=== PATIENT | female | born 1965 | race Caucasian/White ===

== ENCOUNTER 2020-08-08 21:16 | Observation (INO) | payer OTHER ==
[2020-08-08] MEDS ORDERED: SODIUM CHLORIDE 0.9% 1,000 ML IV STA (21:49)
[2020-08-08 22:02] LABS: Basophils # (A) 0.1 k/uL (0-0.2); Basophils % (A) 1 %; Eosinophils # (A) 0.2 k/uL (0-0.7); Eosinophils % (A) 2 %; HCT 41.5 % (34.0-46.0); HGB 13.8 gm/dL (11.4-16.0); Lymphocytes # (A) 3.8 k/uL (1.0-4.8); Lymphocytes % (A) 39 %; MCH 31.5 pg (25.0-35.0); MCHC 33.3 g/dL (31.0-37.0); MCV 94.5 fL (80.0-100.0); Mean Platelet Volume 8.6; Monocytes # (A) 0.5 k/uL (0-1.0); Monocytes % (A) 5 %; Neutrophils # (A) 5.1 k/uL (1.3-7.7); Neutrophils % (A) 52 %; Platelet Count 316 k/uL (150-450); RBC 4.39 m/uL (3.80-5.40); RDW 14.9 % (11.5-15.5); WBC 9.8 k/uL (3.8-10.6)
[2020-08-08 22:04] LABS: Glucose,Whole Blood 83 mg/dL (75-99)
[2020-08-08 22:14] LABS: ALT 44 U/L (4-34); AST 52 U/L (14-36); African American GFR (CKD) 59 (>60 ml/min/1.73 sqM); Albumin 4.7 g/dL (3.5-5.0); Alcohol <10 mg/dL; Alkaline Phosphatase 92 U/L (38-126); Anion Gap 12 mmol/L; Blood Urea Nitrogen 13 mg/dL (7-17); Calcium 10.1 mg/dL (8.4-10.2); Carbon Dioxide 23 mmol/L (22-30); Chloride 106 mmol/L (98-107); Glucose 91 mg/dL (74-99); Magnesium 2.5 mg/dL (1.6-2.3); Non-African American GFR(CKD) 52 (>60 ml/min/1.73 sqM); Potassium 3.7 mmol/L (3.5-5.1); Sodium 141 mmol/L (137-145); Total Bilirubin 0.4 mg/dL (0.2-1.3); Total Protein 7.3 g/dL (6.3-8.2)
--- NOTE | 2020-08-08 22:14 | XR ---
EXAMINATION TYPE: XR chest 2V DATE OF EXAM: 08/08/2020 COMPARISON: NONE HISTORY: Syncope TECHNIQUE: 2 views FINDINGS: Heart and mediastinum are normal. Lungs are clear. Diaphragm is normal. Bony thorax is inta ct. IMPRESSION: Normal chest
--- NOTE | 2020-08-08 22:20 | ED ---
General Adult HPI - General Chief complaint: Syncope Stated complaint: Syncope Time Seen by Provider: 08/08/20 21:19 Source: patient, EMS Mode of arrival: EMS Limitations: no limitations - History of Present Illness Initial comments: 35-year-old female with a past medical history of thyroid disorder presents to the emergency room for a chief complaint of syncope. Patient reports that she was at the bar with her . She had sat for one beer. Patient states her vision started to turn black and she started to feel lightheaded and like she was going to pass out. According to patient's she did pass out and then vomited. She came back to and this happened one more time. They decided to come into the emergency room. Patient states she feels better at this time. Was initially diaphoretic but that has since resolved. She denies any chest pain or shortness of breath associated with this loss of consciousness. Patient has no other complaints at this time including shortness of breath, chest pain, abdominal pain, headache, or visual changes. - Related Data Allergies Allergy/AdvReac Type Severity Reaction Status Date / Time No Known Allergies Allergy Verified 08/08/20 21:51 Review of Systems ROS Statement: Those systems with pertinent positive or pertinent negative responses have been documented in the HPI. ROS Other: All systems not noted in ROS Statement are negative. Past Medical History Past Medical History: Cancer, Thyroid Disorder Additional Past Medical History / Comment(s): thyroid cancer History of Any Multi-Drug Resistant Organisms: None Reported Additional Past Surgical History / Comment(s): thyroidectomy Past Psychological History: No Psychological Hx Reported Smoking Status: Never smoker Past Alcohol Use History: Rare Past Drug Use History: None Reported General Exam Limitations: no limitations General appearance: alert, in no apparent distress Head exam: Present: atraumatic, normocephalic, normal inspection Eye exam: Present: normal appearance, PERRL, EOMI. Absent: scleral icterus, conjunctival injection, periorbital swelling ENT exam: Present: normal exam, mucous membranes moist Neck exam: Present: normal inspection, full ROM. Absent: tenderness, meningismus, lymphadenopathy Respiratory exam: Present: normal lung sounds bilaterally. Absent: respiratory distress, wheezes, rales, rhonchi, stridor Cardiovascular Exam: Present: regular rate, normal rhythm, normal heart sounds. Absent: systolic murmur, diastolic murmur, rubs, gallop, clicks GI/Abdominal exam: Present: soft, normal bowel sounds. Absent: distended, tenderness, guarding, rebound, rigid Neurological exam: Present: alert Course Vital Signs 08/08/20 08/08/20 08/08/20 21:30 22:00 22:48 Temperature 98.2 F Pulse Rate 80 88 73 Respiratory 20 20 18 Rate Blood Pressure 100/53 101/65 102/78 O2 Sat by Pulse 98 99 97 Oximetry EKG Findings - EKG Comments: EKG Findings:: Normal sinus rhythm, ventricular rate 78, AZ interval 208, QTc 458 Medical Decision Making - Medical Decision Making Vitals are stable. Patient initially presented sightly diaphoretic however this did improve her her stay. EKG did show T-wave inversions in the lateral leads however do not have a previous to compare this to. Patient was kept on cardiac monitoring for dysrhythmia. CBC CMP unremarkable. Magnesium 2.5. This x-ray shows a normal chest. Patient does not follow with a primary care doctor and has not had a cardiac workup. Given her age and that she had 2 unprovoked syncopal episodes he will admit her for cardiology consultation. case discussed with Dr Chacon who does accept admission. - Lab Data Result diagrams: 08/08/20 21:55 08/08/20 21:55 Lab Results 08/08/20 08/08/20 08/08/20 Range/Units 21:55 21:55 21:55 WBC 9.8 (3.8-10.6) k/uL RBC 4.39 (3.80-5.40) m/uL Hgb 13.8 (11.4-16.0) gm/dL Hct 41.5 (34.0-46.0) % MCV 94.5 (80.0-100.0) fL MCH 31.5 (25.0-35.0) pg MCHC 33.3 (31.0-37.0) g/dL RDW 14.9 (11.5-15.5) % Plt Count 316 (150-450) k/uL MPV 8.6 Neutrophils % 52 % Lymphocytes % 39 % Monocytes % 5 % Eosinophils % 2 % Basophils % 1 % Neutrophils # 5.1 (1.3-7.7) k/uL Lymphocytes # 3.8 (1.0-4.8) k/uL Monocytes # 0.5 (0-1.0) k/uL Eosinophils # 0.2 (0-0.7) k/uL Basophils # 0.1 (0-0.2) k/uL PT 10.1 (9.0-12.0) sec INR 0.9 (<1.2) APTT 19.5 L (22.0-30.0) sec Sodium 141 (137-145) mmol/L Potassium 3.7 (3.5-5.1) mmol/L Chloride 106 (98-107) mmol/L Carbon Dioxide 23 (22-30) mmol/L Anion Gap 12 mmol/L BUN 13 (7-17) mg/dL Creatinine 1.19 H (0.52-1.04) mg/dL Est GFR (CKD-EPI)AfAm 59 (>60 ml/min/1.73 sqM) Est GFR (CKD-EPI)NonAf 52 (>60 ml/min/1.73 sqM) Glucose 91 (74-99) mg/dL POC Glucose (mg/dL) (75-99) mg/dL POC Glu Promotion Officer ID Calcium 10.1 (8.4-10.2) mg/dL Magnesium 2.5 H (1.6-2.3) mg/dL Total Bilirubin 0.4 (0.2-1.3) mg/dL AST 52 H (14-36) U/L ALT 44 H (4-34) U/L Alkaline Phosphatase 92 (38-126) U/L Troponin I (0.000-0.034) ng/mL Total Protein 7.3 (6.3-8.2) g/dL Albumin 4.7 (3.5-5.0) g/dL Serum Alcohol <10 mg/dL 08/08/20 08/08/20 Range/Units 21:55 22:02 WBC (3.8-10.6) k/uL RBC (3.80-5.40) m/uL Hgb (11.4-16.0) gm/dL Hct (34.0-46.0) % MCV (80.0-100.0) fL MCH (25.0-35.0) pg MCHC (31.0-37.0) g/dL RDW (11.5-15.5) % Plt Count (150-450) k/uL MPV Neutrophils % % Lymphocytes % % Monocytes % % Eosinophils % % Basophils % % Neutrophils # (1.3-7.7) k/uL Lymphocytes # (1.0-4.8) k/uL Monocytes # (0-1.0) k/uL Eosinophils # (0-0.7) k/uL Basophils # (0-0.2) k/uL PT (9.0-12.0) sec INR (<1.2) APTT (22.0-30.0) sec Sodium (137-145) mmol/L Potassium (3.5-5.1) mmol/L Chloride (98-107) mmol/L Carbon Dioxide (22-30) mmol/L Anion Gap mmol/L BUN (7-17) mg/dL Creatinine (0.52-1.04) mg/dL Est GFR (CKD-EPI)AfAm (>60 ml/min/1.73 sqM) Est GFR (CKD-EPI)NonAf (>60 ml/min/1.73 sqM) Glucose (74-99) mg/dL POC Glucose (mg/dL) 83 (75-99) mg/dL POC Glu Promotion Officer ID Julian Hargrove Calcium (8.4-10.2) mg/dL Magnesium (1.6-2.3) mg/dL Total Bilirubin (0.2-1.3) mg/dL AST (14-36) U/L ALT (4-34) U/L Alkaline Phosphatase (38-126) U/L Troponin I <0.012 (0.000-0.034) ng/mL Total Protein (6.3-8.2) g/dL Albumin (3.5-5.0) g/dL Serum Alcohol mg/dL Disposition Clinical Impression: Syncope Disposition: ADMITTED IP TO THIS HOSP Is patient prescribed a controlled substance at d/c from ED?: No Referrals: None,Stated [Primary Care Provider] - 1-2 days Time of Disposition: 22:52
[2020-08-08 22:32] LABS: INR 0.9 (<1.2); Prothrombin Time 10.1 sec (9.0-12.0)
[2020-08-08 22:36] LABS: Partial Thromboplastin Time 19.5 sec (22.0-30.0)
[2020-08-08] MEDS ORDERED: NITROGLYCERIN SL TABS 0.4 MG TAB SUBLINGUAL PRN (22:48)
[2020-08-09] MEDS: SODIUM CHLORIDE 0.9% 1,000 ML IV SCH ×4 (00:52→23:44)
[2020-08-09] MEDS ORDERED: ONDANSETRON 4 MG/2 ML VIAL IVP PRN (02:26)
[2020-08-09] MEDS: ALPRAZolam 0.25 MG TAB PO PRN ×2 (02:38→17:39)
[2020-08-09] MEDS: PANTOPRAZOLE 40 MG TABLET PO SCH ×3 (02:40→17:43)
--- NOTE | 2020-08-09 03:50 | P.HPIM ---
History of Present Illness H&P Date: 08/08/20 Chief Complaint: Syncopal episodes 55-year-old female with no significant past medical history except for hypothyroidism Patient comes in due to experiencing 2 episodes [id number] of syncope. She was with her at a restaurant having 1 alcoholic beverage and dinner about an hour or so into the evening at the restaurants she suddenly started having difficulty with her vision as she was blacking out and then as she was describing that to her she passed out the episode was brief she regained consciousness and says started throwing up as the was trying to help her she denied any chest pain or trouble breathing she denied any palpitations but then she had another episode of passing out she became diaphoretic this episode was again short lived not associated with any violent jerky movement of her body she denies any loss of bladder or bowel control denies any tongue biting she denies any history of seizures or head injury. grew concerned and decided to call EMS to bring at the hospital for evaluation Patient asked that there is no history of premature CAD however her sister was found to have blockage in her LAD at the age of 52 just couple weeks ago. And was also found to have blood clots in her lungs she recalls that her mother has factor V [place]. Otherwise patient denies any drugs or heavy alcohol intake denies any smoking she denies any recent travel or hospitalization denies any history of cancer Patient also complains of acid reflux and history of GERD Patient doesn't have a PCP. In the ED initial workup showed slightly elevated creatinine, AST, and L2 chest x-ray no acute pathology alcohol level is less than 10 EKG showed T wave inversion in lateral leads Troponin was negative Review of Systems Pertinent positives as noted in HPI. All other systems were reviewed and are negative Past Medical History Past Medical History: Cancer, Thyroid Disorder Additional Past Medical History / Comment(s): thyroid cancer History of Any Multi-Drug Resistant Organisms: None Reported Additional Past Surgical History / Comment(s): thyroidectomy Past Psychological History: No Psychological Hx Reported Smoking Status: Never smoker Past Alcohol Use History: Rare Past Drug Use History: None Reported - Past Family History Family Family Medical History: No Reported History Medications and Allergies Allergies Allergy/AdvReac Type Severity Reaction Status Date / Time No Known Allergies Allergy Verified 08/08/20 21:51 Physical Exam Vitals: Vital Signs Temp Pulse Resp BP Pulse Ox 08/08/20 22:48 73 18 102/78 97 08/08/20 22:00 88 20 101/65 99 08/08/20 21:30 98.2 F 80 20 100/53 98 Intake and Output 08/08/20 08/08/20 08/08/20 06:59 14:59 22:59 Other: Weight 81.647 kg Constitutional: No acute distress, conversant, pleasant Eyes: Anicteric sclerae, moist conjunctiva, Pupils equal round reactive to light ENMT: NC/AT Oropharynx clear, no erythema, or exudates Neck: Supple, FROM, no masses, or JVD No carotid bruits No thyromegaly Lungs: Clear to auscultation Clear to percussion Normal respiratory effort, no accessory muscle use Cardiovascular: Heart regular in rate and rhythm, No murmurs, gallops, or rubs No peripheral edema Abdominal: Soft Nontender, no guarding, rebound or rigidity Abdomen moving with respiration Normoactive bowel sounds No hepatomegaly, No splenomegaly No palpable mass No abdominal wall hernia noted Skin: Normal temperature, tone, texture, turgor No induration No subcutaneous nodules No rash, lesions No ulcers Extremities: No digital cyanosis No clubbing Pedal pulses intact and symmetrical Radial pulses intact and symmetrical No calf tenderness Psychiatric: Alert and oriented to person, place and time Appropriate affect fair judgement Neuro Muscles Strength 5/5 in all 4 extremities Sensation to light touch grossly present throughout Cranial nerves II-XII grossly intact No focal sensory deficits Lymphatics: no palpable cervical or supraclavicular , or inguinal lymph nodes Results CBC & Chem 7: 08/08/20 21:55 08/08/20 21:55 Labs: Abnormal Lab Results - Last 24 Hours (Table) 08/08/20 08/08/20 Range/Units 21:55 21:55 APTT 19.5 L (22.0-30.0) sec Creatinine 1.19 H (0.52-1.04) mg/dL Magnesium 2.5 H (1.6-2.3) mg/dL AST 52 H (14-36) U/L ALT 44 H (4-34) U/L Assessment and Plan Assessment: 2 episodes of syncope 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 Fall precautions Orthostatic vital signs Trend troponins EKG showed T wave inversions in lateral leads Cardiology consult Check lipid profile History of thyroid cancer status post resection Check TSH History of GERD PPI Very slightly elevated liver enzymes continue to monitor CODE STATUS: Full code DVT prophylaxis: Heparin subcu 3 times a day Discussed with: Patient, ER, RN Anticipated length of stay less than [address]: Home A total of 75 minutes was spent on the care of this complex patient more than 50% of the time was spent in counseling and care coordination.
--- NOTE | 2020-08-09 08:51 | P.CRDCN ---
History of Present Illness Consult date: 08/09/20 Chief complaint: Syncope/chest pain History of present illness: This is a pleasant 55-year-old female patient with no significant past medical history who was admitted to hospital with syncope. The patient was in her usual state of health where she was with her has been sitting eating dinner and she took only one alcohol beverage with dinner. She was talking to her has been when she told him that I feel funny. She started experiencing mild chest discomfort and subsequently she developed warm feeling in her face and then she felt dizzy and lightheaded and subsequently she lost her consciousness. Also before the episode of loss of consciousness she did have some blurry vision. She regained her consciousness and subsequently she lost it again. Ambulance was called and the patient was brought to the emergency department. No prior history of syncope. No coronary artery disease or congestive heart failure or cardiac arrhythmia. The EKG showed sinus rhythm with T-wave inversion in the anterolateral leads seems to be quite concerning for severe underlying coronary artery disease. The troponin at 3 sets came in to be unremarkable. The chest x-ray did not show any acute abnormalities. The rest of her blood work came in to be unremarkable. She does have a very significant family history of CAD including a sister who just underwent stenting recently and also her mother who does have valvular heart disease and according to her coronary artery disease. Orthostatic blood pressure was checked and came in to be unremarkable Past Medical History Past Medical History: Cancer, Thyroid Disorder Additional Past Medical History / Comment(s): thyroid cancer History of Any Multi-Drug Resistant Organisms: None Reported Past Surgical History: Cholecystectomy Additional Past Surgical History / Comment(s): thyroidectomy Past Anesthesia/Blood Transfusion Reactions: Postoperative Nausea & Vomiting (PONV) Past Psychological History: No Psychological Hx Reported Smoking Status: Never smoker Past Alcohol Use History: Rare Past Drug Use History: None Reported - Past Family History Family Family Medical History: No Reported History Medications and Allergies Allergies Allergy/AdvReac Type Severity Reaction Status Date / Time No Known Allergies Allergy Verified 08/08/20 21:51 Physical Exam Vitals: Vital Signs Temp Pulse Pulse Pulse Pulse Pulse Resp 08/09/20 07:00 97.4 F L 68 70 66 16 08/09/20 02:00 16 08/09/20 00:10 98.0 F 71 16 08/08/20 23:04 68 20 08/08/20 22:48 73 18 08/08/20 22:00 88 20 08/08/20 21:30 98.2 F 80 20 BP BP BP BP BP Pulse Ox 08/09/20 07:00 120/82 131/91 120/82 95 08/09/20 02:00 08/09/20 00:10 138/89 98 08/08/20 23:04 103/58 99 08/08/20 22:48 102/78 97 08/08/20 22:00 101/65 99 08/08/20 21:30 100/53 98 Intake and Output 08/08/20 08/09/20 08/09/20 22:59 06:59 14:59 Other: Voiding Method Toilet # Voids 2 Weight 81.647 kg 81.647 kg - Constitutional General appearance: no acute distress - Respiratory Respiratory: bilateral: CTA - Cardiovascular Rhythm: regular Heart sounds: normal: S1, S2 Abnormal Heart Sounds: systolic murmur Results 08/08/20 21:55 08/08/20 21:55 Cardiac Enzymes 08/08/20 08/08/20 08/09/20 Range/Units 21:55 21:55 00:07 AST 52 H (14-36) U/L Troponin I <0.012 <0.012 (0.000-0.034) ng/mL 08/09/20 Range/Units 03:24 AST (14-36) U/L Troponin I <0.012 (0.000-0.034) ng/mL Coagulation 08/08/20 Range/Units 21:55 PT 10.1 (9.0-12.0) sec APTT 19.5 L (22.0-30.0) sec CBC 08/08/20 Range/Units 21:55 WBC 9.8 (3.8-10.6) k/uL RBC 4.39 (3.80-5.40) m/uL Hgb 13.8 (11.4-16.0) gm/dL Hct 41.5 (34.0-46.0) % Plt Count 316 (150-450) k/uL Comprehensive Metabolic Panel 08/08/20 Range/Units 21:55 Sodium 141 (137-145) mmol/L Potassium 3.7 (3.5-5.1) mmol/L Chloride 106 (98-107) mmol/L Carbon Dioxide 23 (22-30) mmol/L BUN 13 (7-17) mg/dL Creatinine 1.19 H (0.52-1.04) mg/dL Glucose 91 (74-99) mg/dL Calcium 10.1 (8.4-10.2) mg/dL AST 52 H (14-36) U/L ALT 44 H (4-34) U/L Alkaline Phosphatase 92 (38-126) U/L Total Protein 7.3 (6.3-8.2) g/dL Albumin 4.7 (3.5-5.0) g/dL Current Medications Generic Name Dose Route Start Last Admin Trade Name Freq PRN Reason Stop Dose Admin Alprazolam 0.25 mg 08/09/20 02:26 08/09/20 02:38 Alprazolam 0.25 Mg Tab PO 0.25 mg TID PRN Administration Anxiety Aspirin 325 mg 08/09/20 09:00 Aspirin 325 Mg Tab PO DAILY TEJINDER Sodium Chloride 1,000 mls @ 130 mls/hr 08/08/20 23:30 08/09/20 00:52 Saline 0.9% IV 130 mls/hr .[id number] TEJINDER Administration Nitroglycerin 0.4 mg 08/08/20 22:48 Nitroglycerin Sl Tabs 0.4 Mg Tab SUBLINGUAL Q5M PRN Chest Pain Ondansetron HCl 4 mg 08/09/20 02:26 08/09/20 02:38 Ondansetron 4 Mg/2 Ml Vial IVP 4 mg Q6HR PRN Administration Nausea And Vomiting Pantoprazole Sodium 40 mg 08/09/20 02:30 08/09/20 02:40 Pantoprazole 40 Mg Tablet PO 40 mg AC-BID TEJINDER Administration Intake and Output 08/08/20 08/09/20 08/09/20 22:59 06:59 14:59 Other: Voiding Method Toilet # Voids 2 Weight 81.647 kg 81.647 kg 08/08/20 21:55 08/08/20 21:55 Assessment and Plan Assessment: Assessment #1 episodes of syncope #2 chest discomfort Plan #1 the syncope could be reflux syncope but severe CAD to be ruled out giving her chest discomfort before and the abnormal EKG #2 I am going to obtain a stress test to rule out severe CAD #3 obtain an echocardiogram was Doppler #4 follow-up with the patient
[2020-08-09] MEDS ORDERED: ASPIRIN 325 MG TAB PO SCH (09:00)
[2020-08-09 09:06] LABS: Basophils # (A) 0.04 X 10*3/uL (0.00-0.10); Basophils % (A) 0.3 %; Eosinophils # (A) 0.04 X 10*3/uL (0.04-0.35); Eosinophils % (A) 0.3 %; HCT 39.3 % (37.2-46.3); HGB 12.5 g/dL (12.0-15.0); Lymphocytes # (A) 1.66 X 10*3/uL (0.90-5.00); Lymphocytes % (A) 13.4 %; MCH 31.7 pg (27.0-32.0); MCHC 31.8 g/dL (32.0-37.0); MCV 99.7 fL (80.0-97.0); Mean Platelet Volume 11.9 fL (9.5-12.2); Monocytes # (A) 0.42 X 10*3/uL (0.20-1.00); Monocytes % (A) 3.4 %; Neutrophils # (A) 10.15 X 10*3/uL (1.80-7.70); Platelet Count 282 X 10*3/uL (140-440); RBC 3.94 X 10*6/uL (4.10-5.20); RDW 15.6 % (11.5-14.5); WBC 12.38 X 10*3/uL (4.50-10.00)
[2020-08-09 10:03] LABS: African American GFR (CKD) 73.4 (60.0-200.0); Albumin 4.2 g/dL (3.80-4.90); Albumin/Globulin Ratio 1.75 (1.60-3.17); Anion Gap 6.9 mmol/L (4.00-12.00); Calcium 8.8 mg/dL (8.7-10.3); Carbon Dioxide 27.1 mmol/L (21.6-31.8); Chol/HDL Ratio 6.17; Globulin 2.4 g/dL (1.6-3.3); LDL Cholesterol,Calculated 208.6 mg/dL (0.0-131.0); Non-African American GFR(CKD) 63.4 (60.0-200.0); Potassium 4.8 mmol/L (3.5-5.5); Total Bilirubin 0.4 mg/dL (0.2-1.2); Total Protein 6.6 g/dL (6.2-8.2); VLDL Calculation 34.4 mg/dL (5.00-40.00)
[2020-08-09] MEDS: LEVOTHYROXINE 100 MCG TAB PO SCH (12:07)
[2020-08-09] MEDS ORDERED: ATORVASTATIN 40 MG TAB PO STA (12:22)
--- NOTE | 2020-08-09 12:23 | P.PN ---
Subjective Progress Note Date: 08/09/20 No new complaints today. Pending stress test tomorrow. No further episodes of syncope. Mild chest pain, substernal, nonexertional. Objective - Vital Signs Vital signs: Vital Signs Temp 97.4 F L 08/09/20 07:00 Pulse 66 08/09/20 07:00 Resp 16 08/09/20 08:00 BP 120/82 08/09/20 07:00 Pulse Ox 95 08/09/20 07:00 Intake & Output 08/08/20 08/09/20 08/09/20 18:59 06:59 18:59 Intake Total 118 Balance 118 Weight 81.647 kg Intake: Oral 118 Other: Voiding Method Toilet Toilet # Voids 2 - Exam Gen: awake, alert HEENT: normocephalic, atraumatic, good hearing acuity, moist mucous membranes Resp: good air exchange, breathing comfortably with no accessory muscle use, clear to auscultation bilaterally without wheezes or crackles CVS: good distal perfusion x 4, regular rate and rhythm without murmurs GI: soft, NTTP, ND, appropriate bowel sounds : no SPT, no CVAT, matthews catheter not present MSK: no pitting edema, no clubbing Neuro: non-focal, moving all extremities Psych: cooperative, euthymic mood - Labs CBC & Chem 7: 08/09/20 03:24 08/09/20 03:24 Labs: Abnormal Lab Results - Last 24 Hours (Table) 08/08/20 08/08/20 08/09/20 Range/Units 21:55 21:55 03:24 WBC (4.50-10.00) X 10*3/uL RBC (4.10-5.20) X 10*6/uL MCV (80.0-97.0) fL MCHC (32.0-37.0) g/dL RDW (11.5-14.5) % Immature Gran # (0.00-0.04) X 10*3/uL Neutrophils # (1.80-7.70) X 10*3/uL APTT 19.5 L (22.0-30.0) sec Creatinine 1.19 H (0.52-1.04) mg/dL Glucose 114 H (70-110) mg/dL Magnesium 2.5 H (1.6-2.3) mg/dL AST 52 H 40 H (14-36) U/L ALT 44 H (4-34) U/L Triglycerides 172.0 H (0.0-149.0) mg/dL Cholesterol 290 H (0-200) mg/dL LDL Cholesterol, Calc 208.6 H (0.0-131.0) mg/dL TSH 95.610 H (0.350-5.500) uIU/mL 08/09/20 Range/Units 03:24 WBC 12.38 H (4.50-10.00) X 10*3/uL RBC 3.94 L (4.10-5.20) X 10*6/uL MCV 99.7 H (80.0-97.0) fL MCHC 31.8 L (32.0-37.0) g/dL RDW 15.6 H (11.5-14.5) % Immature Gran # 0.07 H (0.00-0.04) X 10*3/uL Neutrophils # 10.15 H (1.80-7.70) X 10*3/uL APTT (22.0-30.0) sec Creatinine (0.52-1.04) mg/dL Glucose (70-110) mg/dL Magnesium (1.6-2.3) mg/dL AST (14-36) U/L ALT (4-34) U/L Triglycerides (0.0-149.0) mg/dL Cholesterol (0-200) mg/dL LDL Cholesterol, Calc (0.0-131.0) mg/dL TSH (0.350-5.500) uIU/mL Assessment and Plan 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 Orthostatic vital signs were negative Trended troponins were negative EKG showed T wave inversions in lateral leads Cardiology consult, recommended stress test Check lipid profile = elevated cholesterol at 290, elevated triglycerides at 172, elevated LDL at 208.6 HDL is 47 - initiate atorvastatin 40mg qHS ASA daily History of thyroid cancer status post resection Check TSH = 95.6 FT4 pending History of GERD PPI Elevated Liver Enzymes continue to monitor CODE STATUS: Full code DVT prophylaxis: Heparin subcu 3 times a day Discussed with: Patient, ER, RN Anticipated length of stay less than [address]: Home
[2020-08-09 12:37] LABS: Urine Alcohol Negative (Negative); Urine Barbiturate Negative (Negative); Urine Cocaine Negative (Negative); Urine Methadone Negative (Negative); Urine Opiates Negative (Negative); Urine Phencyclidine Negative (Negative)
[2020-08-09] MEDS ORDERED: ATORVASTATIN 40 MG TAB PO SCH (21:00)
[2020-08-09] MEDS ORDERED: IBUPROFEN 600 MG TAB PO PRN (21:10)
[2020-08-10] MEDS: LEVOTHYROXINE 100 MCG TAB PO SCH (05:56)
[2020-08-10] MEDS: SODIUM CHLORIDE 0.9% 1,000 ML IV SCH ×2 (06:13→08:50)
[2020-08-10] MEDS: PANTOPRAZOLE 40 MG TABLET PO SCH (08:49)
[2020-08-10] MEDS ORDERED: ASPIRIN 81 MG PO SCH (09:00)
--- NOTE | 2020-08-10 10:13 | P.PN ---
Subjective Progress Note Date: 08/10/20 HISTORY OF PRESENT ILLNESS: This is a pleasant 55-year-old female patient with no significant past medical history who was admitted to hospital with syncope. The patient was in her usual state of health where she was with her has been sitting eating dinner and she took only one alcohol beverage with dinner. She was talking to her has been when she told him that I feel funny. She started experiencing mild chest discomfort and subsequently she developed warm feeling in her face and then she felt dizzy and lightheaded and subsequently she lost her consciousness. Also before the episode of loss of consciousness she did have some blurry vision. She regained her consciousness and subsequently she lost it again. Ambulance was called and the patient was brought to the emergency department. No prior history of syncope. No coronary artery disease or congestive heart failure or cardiac arrhythmia. The EKG showed sinus rhythm with T-wave inversion in the anterolateral leads seems to be quite concerning for severe underlying coronary artery disease. The troponin at 3 sets came in to be unremarkable. The chest x-ray did not show any acute abnormalities. The rest of her blood work came in to be unremarkable. She does have a very significant family history of CAD including a sister who just underwent stenting recently and also her mother who does have valvular heart disease and according to her coronary artery disease. Orthostatic blood pressure was checked and came in to be unremarkable 08/10/2020 Patient examined this morning at the bedside. Patient denies any further episodes of chest pain or pressure. She reports feeling some nausea this morning and dizziness. She states she closed her eyes and just laid in bed and it resolved on its own. PHYSICAL EXAM: VITAL SIGNS: Reviewed. GENERAL: Well-developed in no acute distress. NECK: Supple. No JVD or thyromegaly LUNGS: Respirations even and unlabored. Lungs essentially clear to auscultation bilaterally. HEART: Regular rate and rhythm. S1 and S2 heard. EXTREMITIES: Normal range of motion. No clubbing or cyanosis. Peripheral pulses intact. No lower extremity edema ASSESSMENT: Syncope Chest pain with abnormal EKG revealing T-wave inversions in anterior lateral leads History of thyroid cancer PLAN: 2-D echo ordered. Await results Patient to undergo stress echocardiogram today. If stress test is negative, she may be discharged home today from a cardiac standpoint Nurse practitioner note has been reviewed by physician. Signing provider agrees with the documented findings, assessment, and plan of care. Objective - Vital Signs Vital signs: Vital Signs Temp 97.4 F L 08/10/20 07:00 Pulse 67 08/10/20 07:00 Resp 16 08/10/20 07:00 BP 132/87 08/10/20 07:00 Pulse Ox 98 08/10/20 07:00 Intake & Output 08/09/20 08/10/20 08/10/20 18:59 06:59 18:59 Intake Total 798 Balance 798 Intake: Oral 798 Other: Voiding Method Toilet Toilet # Voids 1 2 - Labs CBC & Chem 7: 08/09/20 03:24 08/09/20 03:24 Labs: Abnormal Lab Results - Last 24 Hours (Table) 08/09/20 08/09/20 Range/Units 03:24 03:24 TSH 95.610 H (0.350-5.500) uIU/mL Free T4 0.30 L (0.80-1.80) ng/dL
--- NOTE | 2020-08-10 11:36 | ECHOF ---
Referral Reason:CP MEASUREMENTS -------- HEIGHT: 160.0 cm WEIGHT: 81.6 kg BP: 120/81 RVIDd: 3.0 cm (< 3.3) IVSd: 1.4 cm (0.6 - 1.1) LVIDd: 4.2 cm (3.9 - 5.3) LVPWd: 1.7 cm (0.6 - 1.1) IVSs: 1.7 cm LVIDs: 2.7 cm LVPWs: 2.1 cm LAESV Index (A-L): 24.75 ml/m Ao Diam: 3.2 cm (2.0 - 3.7) AV Cusp: 2.3 cm (1.5 - 2.6) LA Diam: 3.7 cm (2.7 - 3.8) MV EXCURSION: 14.126 mm (> 18.000) MV EF SLOPE: 53 mm/s (70 - 150) EPSS: 0.5 cm MV E Casper: 0.71 m/s MV DecT: 154 ms MV A Casper: 0.61 m/s MV E/A Ratio: 1.17 RAP: 5.00 mmHg RVSP: 21.67 mmHg FINDINGS -------- Sinus rhythm. This was a technically good study. The left ventricular size is normal. There is moderate concentric left ventricular hypertrophy. O verall left ventricular systolic function is normal with, an EF between 55 - 60 %. The diastolic fi lling pattern is normal for the age of the patient 8.91. The right ventricle is normal in size. Normal LA size by volume 22+/-6 ml/m2. The right atrial size is normal. Interatrial and interventricular septum intact. The aortic valve is trileaflet and appears structurally normal. Trace amount of aortic regurgitatio n. There is no evidence of aortic stenosis. The mitral valve is normal. Mild mitral regurgitation is present. The tricuspid valve appears structurally normal. Mild tricuspid regurgitation present. Right vent ricular systolic pressure is normal at < 35 mmHg. The right ventricular systolic pressure, as measu red by Doppler, is 21.67mmHg. Trace/mild (physiologic) pulmonic regurgitation. The aortic root size is normal. Normal inferior vena cava with normal inspiratory collapse consistent with estimated right atrial pre ssure of 5 mmHg. There is no pericardial effusion. CONCLUSIONS -------- 1. There is moderate concentric left ventricular hypertrophy. 2. Overall left ventricular systolic function is normal with, an EF between 55 - 60 %. 3. Normal LA size by volume 22+/-6 ml/m2. 4. Trace amount of aortic regurgitation. 5. Mild mitral regurgitation is present. 6. Mild tricuspid regurgitation present. 7. Trace/mild (physiologic) pulmonic regurgitation. 8. There is no pericardial effusion. [employer]ER: Marisa Mcghee RDCS
[2020-08-10 15:10] VITALS: BP 120/77; PULSE 69; RESP 18; TEMP 97.2
--- NOTE | 2020-08-10 15:37 | P.DS ---
Providers Date of admission: 08/08/20 22:44 Expected date of discharge: 08/10/20 Attending physician: Nelson Chacon MD Consults: 08/08/20 22:48 Consult Physician Routine Consulting Provider: [facility] Consult Reason/Comments: syncope x 2 Do you want consulting provider notified?: Yes Primary care physician: Stated None Hospital Course: HPI: 55-year-old female with no significant past medical history except for hypothyroidism Patient comes in due to experiencing 2 episodes [id number] of syncope. She was with her at a restaurant having 1 alcoholic beverage and dinner about an hour or so into the evening at the restaurants she suddenly started having difficulty with her vision as she was blacking out and then as she was describing that to her she passed out the episode was brief she regained consciousness and says started throwing up as the was trying to help her she denied any chest pain or trouble breathing she denied any palpitations but then she had another episode of passing out she became diaphoretic this episode was again short lived not associated with any violent jerky movement of her body she denies any loss of bladder or bowel control denies any tongue biting she denies any history of seizures or head injury. grew concerned and decided to call EMS to bring at the hospital for evaluation Patient asked that there is no history of premature CAD however her sister was found to have blockage in her LAD at the age of 52 just couple weeks ago. And was also found to have blood clots in her lungs she recalls that her mother has factor V Leyden. Otherwise patient denies any drugs or heavy alcohol intake denies any smoking she denies any recent travel or hospitalization denies any history of cancer Patient also complains of acid reflux and history of GERD Patient doesn't have a PCP. In the ED initial workup showed slightly elevated creatinine, AST, and L2 chest x-ray no acute pathology alcohol level is less than 10 EKG showed T wave inversion in lateral leads Troponin was negative Hospital Course: Syncope History of thyroid cancer status post resection Patient was admitted to the hospital with quality assurance monitor, which did not demonstrate any arrhythmic events over 48 hours. Orthostatic vitals were negative. Troponins were trended and were negative. EKG did show T-wave inversions in lateral leads, nonspecific pattern. Cardiology was consulted and recommended dobutamine echo stress test, which was performed on 08/10 and was negative for inducible wall motion abnormality. Patient's risk factors including lipid profile were checked and demonstrated elevated cholesterol to 290, LDL of 208.6 - patient was started on atorvastatin at 40 mg daily at bedtime. She was also started on aspirin daily for risk factor modification. Her TSH was also checked and demonstrated an elevated value of 95.6 with free T4 of 0.3. Her levothyroxine compliance was reviewed, patient reported missing 2-3 doses per week of the levothyroxine that she is on at home, currently 200 g daily. I did reinforce the necessity of continuing to take levothyroxine every day, 30 minutes before all other medications and 60 minutes before meals. I also recommend we increase her levothyroxine dose to 250 g daily. I advised th at she follow-up with her PCP in the next 6-8 weeks regarding rechecking this level. Patient was discharged home with new prescriptions for aspirin and atorvastatin, as well as increased dose of levothyroxine as above. Patient will follow-up with her primary care provider. History of GERD PPI [id number] Assessment: Gen: awake, alert HEENT: normocephalic, atraumatic, good hearing acuity, moist mucous membranes Resp: good air exchange, breathing comfortably with no accessory muscle use, clear to auscultation bilaterally without wheezes or crackles CVS: good distal perfusion x 4, regular rate and rhythm without murmurs GI: soft, NTTP, ND, appropriate bowel sounds : no SPT, no CVAT, matthews catheter not present MSK: no pitting edema, no clubbing Neuro: non-focal, moving all extremities Psych: cooperative, euthymic mood Patient Condition at Discharge: Good Plan - Discharge Summary Discharge Rx Participant: No New Discharge Prescriptions: New Aspirin 81 mg PO DAILY #30 chew Levothyroxine Sodium [Euthyrox] 50 mcg PO AC-BRKFST #30 tablet Atorvastatin [Lipitor] 40 mg PO HS #30 tab Continue Levothyroxine Sodium [Synthroid] 200 mcg PO DIRECTED Discharge Medication List Levothyroxine Sodium [Synthroid] 200 mcg PO DIRECTED 08/09/20 [History] Aspirin 81 mg PO DAILY #30 chew 08/10/20 [Rx] Atorvastatin [Lipitor] 40 mg PO HS #30 tab 08/10/20 [Rx] Levothyroxine Sodium [Euthyrox] 50 mcg PO AC-BRKFST #30 tablet 08/10/20 [Rx] Follow up Appointment(s)/Referral(s): Josue Lee MD [STAFF PHYSICIAN] - 1 Week (The office will call you to make the appointment.) None,Stated [Primary Care Provider] - 1-2 days Patient Instructions/Handouts: Syncope (DC) Discharge Disposition: HOME SELF-CARE
--- NOTE | 2020-08-11 08:23 | ECHOS ---
STRESS ECHOCARDIOGRAM DATE OF SERVICE: 08/10/20 CLINICAL INFORMATION: Chest pain AGE: 55 SEX: F HT: 5'3" WT: 180 lbs PROTOCOL: Jd STAGE: III DURATION OF EXERCISE: 6:10 HEART RATE REST: 65 BLOOD PRESSURE REST: 121/97 MAXIMUM HEART RATE ACHIEVED: 117 MAXIMUM BLOOD PRESSURE: 197/115 85% MPHR: 140 100% MPHR: 165 METS: 7.5 RESULTS: Baseline rhythm is a sinus mechanism, rate of 65, normal axis and intervals. Nonspecific ST-T wave changes. Baseline blood pressure 121/97 mmHg. Patient exercised on Jd protocol for 6 minutes 10 seconds reaching peak rate of 125 beats per minute which is equal to 76% maximum predicted heart rate. Peak blood pressure 197/115 mmHg. Test was terminated secondary to fatigue. There was no chest pain. Electrocardiograph monitoring revealed a rate-related intraventricular conduction delay that resolved in recovery. Baseline echocardiogram revealed normal wall motion. At peak exercise, there was normal wall motion augmentation with no hypokinesis or dyskinesis. CONCLUSION: 1. Decreased exercise tolerance with nondiagnostic electrocardiograph stress testing with rate-related interventricular conduction delay. 2. Nondiagnostic electrocardiograph stress testing secondary to the inability to achieve 85% maximum predicted heart rate, at the rate achieved there was no evidence of stress-induced ischemia. MMODL / IJN: [id number] /
== END 2020-08-10 15:14 | disposition home or self-care (01) ==
LOC: EC 21:16 → 6NMEDSUR 22:44
PROVIDERS: ADMIT Internal Medicine; ATTEND Internal Medicine
DX: R55 Syncope and collapse (principal); R07.2 Precordial pain; R94.31 Abnormal electrocardiogram [ECG] [EKG]; Z20.822 Contact with and (suspected) exposure to COVID-19; E78.00 Pure hypercholesterolemia, unspecified; R61 Generalized hyperhidrosis; H53.8 Other visual disturbances; R74.8 Abnormal levels of other serum enzymes; R79.89 Other specified abnormal findings of blood chemistry; E89.0 Postprocedural hypothyroidism; R42 Dizziness and giddiness; Z79.82 Long term (current) use of aspirin; Z85.850 Personal history of malignant neoplasm of thyroid; Z90.49 Acquired absence of other specified parts of digestive tract; Z90.89 Acquired absence of other organs; Z83.2 Family history of diseases of the blood and blood-forming organs and certain disorders involving the immune mechanism; Z82.49 Family history of ischemic heart disease and other diseases of the circulatory system
CPT/HCPCS: 96361 ×2; 96374; 93005 ×2; 99285; 36415; 93306; 93351; 85379; 84439; 80061; 80053 ×2; 84443; 83735; 84484 ×2; 85025 ×2; 85610; 85730; 80306; 80320; 87635; 71046; G0378 ×3; J2405

== ENCOUNTER 2020-11-13 16:50 | Emergency (ER) | payer OTHER ==
[2020-11-13] MEDS ORDERED: SODIUM CHLORIDE 0.9% 50 ML IVPB ONE (18:30)
--- NOTE | 2020-11-13 18:32 | XR ---
EXAMINATION TYPE: XR chest 1V portable DATE OF EXAM: 11/13/2020 COMPARISON: 08/08/2020 HISTORY: Cough TECHNIQUE: Single view FINDINGS: There is some linear density left lung base. Heart and mediastinum are normal. There are no hilar masses. Bony thorax is intact. There are chest leads. IMPRESSION: Mild subsegmental atelectasis left lung base. Normal heart.
[2020-11-13] MEDS ORDERED: CASIRIVIMAB/IMDEVIMAB (EUA) 1,200 MG in SODIUM CHLORIDE 0.9% 100 ML IVPB ONE (19:00)
--- NOTE | 2020-11-13 19:05 | ED ---
Fever HPI - General Chief Complaint: Fever Stated Complaint: weak/coughing/wants covid test Time Seen by Provider: 11/13/20 17:16 Source: patient Mode of arrival: ambulatory Limitations: no limitations - History of Present Illness Initial Comments: Is a 55-year-old female who presents him in the department for cold-like symptoms. The patient states that she's had fever, chills, body aches, cough, shortness of breath for the last 2 days. She states that her was recently diagnosed with cold and she's been in close contact with him. She states that she has not been vaccinated. She did recover from Covid last year however. She states that she came into her today because she was curious about receiving the infusion. She otherwise denies any other complaints. - Related Data Home Medications Medication Instructions Recorded Confirmed Levothyroxine Sodium [Synthroid] 200 mcg PO DIRECTED 08/09/20 11/13/20 Previous Rx's Medication Instructions Recorded Levothyroxine Sodium [Euthyrox] 50 mcg PO AC-BRKFST #30 tablet 08/10/20 Allergies Allergy/AdvReac Type Severity Reaction Status Date / Time No Known Allergies Allergy Verified 11/13/20 16:58 Review of Systems ROS Statement: Those systems with pertinent positive or pertinent negative responses have been documented in the HPI. ROS Other: All systems not noted in ROS Statement are negative. Past Medical History Past Medical History: Cancer, Thyroid Disorder Additional Past Medical History / Comment(s): thyroid cancer History of Any Multi-Drug Resistant Organisms: None Reported Past Surgical History: Cholecystectomy Additional Past Surgical History / Comment(s): thyroidectomy Past Anesthesia/Blood Transfusion Reactions: Postoperative Nausea & Vomiting (PONV) Past Psychological History: No Psychological Hx Reported Smoking Status: Never smoker Past Alcohol Use History: Rare Past Drug Use History: None Reported - Past Family History Family Family Medical History: No Reported History General Exam - General Exam Comments Initial Comments: Constitutional: [Awake alert] [Appears comfortable] Head: [Normocephalic atraumatic] Eyes: [no conjunctival injection] [No scleral icterus] [EOMI] Neck: [No JVD] [Supple] Heart: [Regular rate rhythm] [normal S1-S2] [no murmurs] Lungs: [Clear to auscultation bilaterally] [No wheezing] [No rales] Abdomen: [Soft] [nondistended] [nontender] Extremities: [Non edematous] [DP pulses intact] [Radial pulses intact] Neuro: [A&Ox3] [No focal neurologic deficits] Psych: [Appropriate mood and affect] Limitations: no limitations Course Vital Signs 11/13/20 11/13/20 11/13/20 16:55 17:58 18:28 Temperature 98.4 F Pulse Rate 82 Respiratory 16 18 18 Rate Blood Pressure 124/83 O2 Sat by Pulse 92 L Oximetry 11/13/20 11/13/20 11/13/20 19:00 19:30 20:56 Temperature 99.2 F 100.2 F H Pulse Rate 76 77 Respiratory 18 18 16 Rate Blood Pressure 115/77 124/77 O2 Sat by Pulse 98 96 Oximetry Medical Decision Making - Medical Decision Making Is a 55-year-old female who presents emergency department for cold-like symptoms. The patient was found be: Positive. She was not hypoxic on room air. She did meet criteria for monoclonal antibody infusion and this was given to her. She was monitored for an hour and did not have any adverse reactions. The patient will be sent home and advised to monitor her symptoms for any increasing shortness of breath or any concerning symptoms. All questions were answered. - Lab Data Lab Results 11/13/20 Range/Units 17:01 Coronavirus (PCR) Detected A (Not Detectd) Disposition Clinical Impression: COVID-19 Disposition: HOME SELF-CARE Condition: Stable Instructions (If sedation given, give patient instructions): Coronavirus Disease 2019 (COVID-19) Is patient prescribed a controlled substance at d/c from ED?: No Referrals: None,Stated [Primary Care Provider] - 1-2 days
[2020-11-13 21:00] VITALS: BP 124/77; PULSE 77; RESP 16; TEMP 100.2
== END 2020-11-13 21:09 | disposition home or self-care (01) ==
LOC: EC 16:50
DX: U07.1 COVID-19 (principal); Z79.890 Hormone replacement therapy; Z85.850 Personal history of malignant neoplasm of thyroid; Z90.49 Acquired absence of other specified parts of digestive tract
CPT/HCPCS: 87635; 71045; 99285; 96365; Q0243

== ENCOUNTER → 2022-01-19 | Outpatient (CLI) | payer OTHER ==
--- NOTE | 2022-01-19 11:11 | US ---
EXAMINATION TYPE: US venous doppler duplex LE DATE OF EXAM: 01/19/2022 9:48 AM COMPARISON: NONE CLINICAL HISTORY: R60.0 M79.661 M79.662. No hx of DVT. Patient does not take blood thinners. Pain and edema x a couple months. SIDE PERFORMED: Bilateral TECHNIQUE: The lower extremity deep venous system is examined utilizing real time linear array sonog umesh with graded compression, doppler sonography and color-flow sonography. VESSELS IMAGED: Common Femoral Vein Deep Femoral Vein Greater Saphenous Vein * Femoral Vein Popliteal Vein Small Saphenous Vein * Proximal Calf Veins (* superficial vessels) Right Leg: No evidence of DVT. Left Leg: No evidence of DVT. Scanned patient's area of concern, left medial ankle/foot. Complex area seen superficially measuring 2.0 x 1.4 x 0.7 cm. IMPRESSION: No DVT
== END | disposition home or self-care (01) ==
LOC: RADUSWWP 09:05
PROVIDERS: ATTEND Student in an Organized Health Care Education/Training Program
DX: M79.661 Pain in right lower leg (principal); R60.0 Localized edema; M79.662 Pain in left lower leg
CPT/HCPCS: 93922; 93970